=== PATIENT | female | born 1990 | race Caucasian/White ===

== ENCOUNTER 2020-06-09 13:29 | Emergency (ER) | payer OTHER ==
[~2020-06-09] VITALS: Ht 165.1 cm; Wt 53.1 kg
[2020-06-09 13:35] VITALS: BP 145/80; Ht 165.1 cm; Wt 53.1 kg
[2020-06-09 14:57] LABS: BASOPHIL % 0.7 % (0.2-1.3); PLATELET COUNT 269 x10^3mcL (179-408); RED CELL DISTRIBUTION WIDTH 12.8 % (12.3-17.7)
== END 2020-06-09 15:49 | disposition home or self-care (01) ==
LOC: ED 13:29
PROVIDERS: Emergency Medicine
DX: N93.9 Abnormal uterine and vaginal bleeding, unspecified (principal)